=== PATIENT | female | born 1965 | race Caucasian/White ===

== ENCOUNTER 2017-04-06 06:10 | Emergency (ER) | payer SELFPAY ==
[~2017-04-06] VITALS: Ht 167.6 cm; Wt 90.0 kg
[2017-04-06 06:36] LABS: HEMATOCRIT 43.6 % (37.0-47.0); HEMOGLOBIN 14.7 g/dl (12.0-16.0); IMMATURE GRANULOCYTES 0.5 % (0.0-1.0); MEAN CORPUSCULAR HGB CONC 33.7 g/L CALC (32.0-36.0); NEUT# 4.49 thou/uL (2.00-7.15); RED BLOOD COUNT 4.59 mill/uL (4.20-5.60); RED CELL DISTRI WIDTH 12.3 % (11.5-15.5)
[2017-04-06] MEDS ORDERED: LEVOTHYROXINE25 MCG PO (06:37)
[2017-04-06] MEDS ORDERED: FOLIC ACID1 MG PO (06:38)
[2017-04-06] MEDS ORDERED: EFFEXOR XR75 MG PO (06:38)
[2017-04-06] MEDS ORDERED: NEXIUM40 MG PO (06:38)
[2017-04-06] MEDS ORDERED: LOPRESSOR25 M1 PO (06:40)
[2017-04-06 06:54] LABS: PROTHROMBIN TIME 10.7 SECONDS (9.0-12.5)
[2017-04-06 06:56] LABS: ALKALINE PHOSPHATASE 70 u/l (38-126); AMYLASE 73 u/l (30-110); ANION GAP 13 (6-22 (CALC)); BILIRUBIN, TOTAL 0.4 mg/dL (0.0-1.4); BUN 14 mg/dL (7-17); BUN/CREATININE RATIO 14 (12-20 (CALC)); CALCIUM 9.3 mg/dL (8.4-10.2); CARBON DIOXIDE 27 mmol/l (22-30); CHLORIDE 104 mmol/l (95-108); CREATININE 0.9 mg/dL (0.5-1.0); GFR > 60 ML/MIN (>=60 (CALC)); GFR FOR AFR.AMER. > 60 ML/MIN (>=60 (CALC)); GLUCOSE 124 mg/dL (65-105); LIPASE 71 u/l (23-300); POTASSIUM 4.1 mmol/l (3.5-5.1); SGOT/AST 17 u/l (14-36); SGPT/ALT 26 u/l (9-52); SODIUM 140 mmol/l (137-146); TOTAL PROTEIN 7.3 g/dL (6.3-8.2)
[2017-04-06 07:08] LABS: MYOGLOBIN 15 ng/mL (0 - 62)
[2017-04-06 07:40] VITALS: BP 115/71
== END 2017-04-06 07:40 | disposition left against medical advice (07) | DRG 313 ==
LOC: ED 06:10
PROVIDERS: Emergency Medicine
DX: R07.9 Chest pain, unspecified (principal); F32.9 Major depressive disorder, single episode, unspecified; K21.9 Gastro-esophageal reflux disease without esophagitis; F41.9 Anxiety disorder, unspecified; E03.9 Hypothyroidism, unspecified; F17.210 Nicotine dependence, cigarettes, uncomplicated; Z91.19 Patient's noncompliance with other medical treatment and regimen